=== PATIENT | male | born 2000 | race Caucasian/White ===

== ENCOUNTER 2024-07-02 15:20 | Emergency (ER) | payer SELFPAY ==
[~2024-07-02] VITALS: Ht 172.7 cm; Wt 77.0 kg
[2024-07-02 15:23] VITALS: TEMP 98
[2024-07-02 17:00] VITALS: BP 119/74; PULSE 79; RESP 15
[2024-07-02] MEDS: PERTUSS(ACELL),DIPH,TET/PF 0.5 ML SYRINGE [ADULT] IM. ONE (17:43)
== END 2024-07-02 18:05 | disposition home or self-care (01) ==
LOC: EMS 15:20
DX: S61.312A Laceration without foreign body of right middle finger with damage to nail, initial encounter (principal); W45.8XXA Other foreign body or object entering through skin, initial encounter; Y93.89 Activity, other specified; Y92.89 Other specified places as the place of occurrence of the external cause; Y99.8 Other external cause status
CPT/HCPCS: 11760; 90471; 90715; 99285